=== PATIENT | female | born 1960 | race Caucasian/White ===

== ENCOUNTER 2023-09-24 20:34 | Emergency (ER) | payer MEDICARE, MEDICAID, SELFPAY ==
[2023-09-24 20:40] VITALS: BMI 23.8
[2023-09-24 20:42] VITALS: BP 99/65
[2023-09-24 20:52] LABS: % Basophils 1.1 % (0-2); % Eosinophils 2.9 % (0-6); % Immature Granulocytes 0.4 % (0-0.5); % Monocytes 11.5 % (1.7-9.3); % Neutrophils 50.1 % (42.2-75.2); Absolute Basophils 0.1 10^3/uL (0-0.2); Absolute Eosinophils 0.2 10^3/uL (0-0.7); Absolute Lymphocytes 2.6 10^3/uL (1.2-3.4); Absolute Monocytes 0.9 10^3/uL (0.1-0.6); Absolute Neutrophils 3.8 10^3/uL (1.4-6.5); Hematocrit 41.6 % (37.0-47.0); Hemoglobin 14.4 g/dL (12.0-16.0); Mean Corp Hgb Conc. 34.6 g/dL (33.0-37.0); Mean Corpuscular Hgb 32.2 pg (27.0-31.0); Mean Corpuscular Volume 93.1 fL (81.0-99.0); Mean Platelet Volume 9.3 fL (7.4-10.4); Nucleated Red Blood Cells % 0.4 %; Platelet Count 254 10^3/uL (130-400); Red Blood Cell Count 4.47 10^6/uL (4.20-5.40); Red Cell Dist. Width 15.7 % (11.5-14.5); White Blood Cell Count 7.5 10^3/uL (4.8-10.8)
[2023-09-24 21:10] LABS: ALT (SGPT) 91 U/L (0-35); AST (SGOT) 118 U/L (14-36); Albumin 3.6 g/dl (3.5-5.0); Alcohol 233 mg/dl; Alkaline Phosphatase 106 U/L (38-126); Blood Urea Nitrogen 25 mg/dl (7-17); Calcium 8.9 mg/dl (8.4-10.2); Carbon Dioxide 28 mmol/L (22-30); Chloride 102 mmol/L (98-107); Estimated Creatinine Clearance 54 ml/min; Glucose 117 mg/dl (70-99); Potassium 4.3 mmol/L (3.5-5.1); Sodium 135 mmol/L (135-145); Total Bilirubin 0.7 mg/dl (0.2-1.3); Total Protein 6.2 g/dl (6.3-8.2); eGFR 57.17
[2023-09-24] MEDS: DUONEB 3 ML INH ×2 (21:34→22:54)
[2023-09-24 22:05] VITALS: BP 97/71
[2023-09-24] MEDS: ATIVAN 0.5 MG IV ×2 (22:20→22:54)
[2023-09-24 23:00] VITALS: BP 115/74
--- NOTE | 2023-09-24 23:28 | ED.CVA ---
History of Present Illness
General
Chief Complaint: CVA/TIA Symptoms
Source: patient
Exam Limitations: none
Time Seen by Provider: 09/24/23 21:04
Nursing documentation reviewed up to this point in time: agreed with
Onset of Stroke Symptoms
Onset of symptoms known: Yes
Date of onset of symptoms: 09/24/23
Travel History
Have you had any contact with someone who has COVID-19?: No
Do you have any symptoms of coronavirus? Fever > 100 degrees, chills, cough, shortness of breath, sore throat, loss of taste or smell, muscle aches, or headache?: No
History of Present Illness
History of Present Illness:
63-year-old female with a past medical history of chronic pain, COPD/asthma, chronic respiratory failure on home oxygen 3 L, hyperlipidemia, alcohol abuse, prior stroke with residual left-sided weakness who presents to the emergency department for
evaluation of 'panic attack.' Patient says 'I think I am having a panic attack.' According to EMS report she was complaining of numbness in the left side of her face that started yesterday. Patient says that she has had intermittent tingling in
the left upper lip that she tells me that it started this morning and has been consistent throughout the day. She says that she was anxious because she had a recent stroke with left-sided symptoms and so she came to the emergency room to be
assessed. She tells me that now she think she is having a panic attack because she feels that she is short of breath and feels like her heart is racing consistent with prior panic attacks. She is requesting some medicine for anxiety. She was
apparently nauseous on the way to the hospital was given Zofran. She denies any nausea from me. No vomiting. No abdominal pain. She has not had any recent cough, fevers, chills or URI type symptoms. She denies any chest pain at present and has
not had chest pain over the past few days. She has not had any headache, neck pain. She has chronic weakness in the left side of both the arm and the leg which she denies any new weakness or numbness or worsening weakness on the left. She denies
any dizziness. She denies any falls or trauma. Denies any other complaints.
Past History
Past History
ED Past Medical History: Asthma, COPD, Hypercholesterolemia, [place], Psychiatric (Depression, suicide attempts in the past, self-inflicted lacerations, Bipolar) and Other (chronic pain syndrome, narcotic dependant, cervical djd with chronic pain,
RSD,PNA, Nasal 02 all the time, Alcohol abuse, Compression Fractures)
ED Past Surgical History: Gynecological (brast surgery-lumpectomy (benign)) and Orthopedic (cervical lami with fusionmm, vertebroplasty, Right humerous repair)
Social History
Tobacco: Former smoker
Alcohol: Daily (history of alcohol abuse)
Drug: Marijuana
Personal: Single (Has Boyfriend)
Living: with family (Common law [facility])
Employment: Not employed
Family History
Family History: Other ([place]'s disease)
Review of Systems
Review of Systems
All Other Systems: ROS reviewed and negative except as documented in HPI and ROS
Constitutional: Denies fever or chills
EENT: Denies sore throat or runny nose
Respiratory: Reports trouble breathing; Denies cough
Cardiac: Reports palpitations; Denies chest pain, diaphoresis or syncope
ABD/GI: Reports nausea; Denies abdominal pain, vomiting or diarrhea
: Denies flank pain
Musculoskeletal: Denies neck pain or back pain
Neurological: Reports other (Left upper lip paresthesia); Denies dizzy, headache, weakness or numbness
Phy Exam
Physical Exam
Physical Exam:
General: Awake, alert, oriented x3; appears anxious but no acute distress
Head: Normocephalic, atraumatic
Eyes: Conjunctiva normal, EOMI, pupils equal round reactive to light
Throat: Airway intact, handling secretions
Neck: Trachea midline, supple without meningismus
Lungs: Patient has faint wheezing scattered throughout all lung hodge; acceptable pulse ox on home oxygen and acceptable respiratory rate
Heart: Regular rate and rhythm, no murmurs, gallops, or rubs
Abd: Soft, non distended, nontender
Neuro: Cranial nerves intact 2 through 12�notably no objective deficit in facial sensation; no limb ataxia; she has 4/5 strength left upper and lower extremity which she says is normal for her; strength 5/5 right upper and lower extremity
Skin: no rash
Extremities: Warm and well-perfused with no signs of trauma; moving all extremities equally with no pain
Scores
Heart Failure Risk
Heart Failure Risk Score: Not Applicable
Heart Score for Chest Pain Patients
STEMI patient?: Not applicable
Withdrawal Assessment of Alcohol
Withdrawal Assessment Completed?: Not applicable
Course
Orders/Labs/Results
Orders:
Orders
09/24/23 20:46
CT Head W/o Iv Contrast Urgent
Comment:
Reason For Exam: facial numb
09/24/23 20:47
Alcohol Urgent
Complete Blood Count/With Diff Urgent
Comprehensive Metabolic Panel Urgent
09/24/23 21:20
Electrocardiogram (*1) Urgent
Reason for Study: Shortness of Breath
EKG- Treatment ONCE
Ipratropium/Albuterol Sulfate [Duoneb] 3 ml INH R NOW STA
CR Chest - 2 Views Urgent
Comment:
Reason For Exam: sob
09/24/23 22:15
Lorazepam [Ativan] 0.5 mg IV NOW STA
09/24/23 22:48
Ipratropium/Albuterol Sulfate [Duoneb] 3 ml INH R NOW STA
Lorazepam [Ativan] 0.5 mg IV NOW STA
Abnormal Lab Results
09/24/23
20:47
MCH 32.2 H pg
(27.0-31.0)
RDW 15.7 H %
(11.5-14.5)
Absolute Monos (auto) 0.9 H 10^3/uL
(0.1-0.6)
Monocytes % 11.5 H %
(1.7-9.3)
BUN 25 H mg/dl
(7-17)
Creatinine 1.1 H mg/dL
(0.6-1.0)
Glucose 117 H mg/dl
(70-99)
AST 118 H U/L
(14-36)
ALT 91 H U/L
(0-35)
Total Protein 6.2 L g/dl
(6.3-8.2)
09/24/23 20:47
09/24/23 20:47
Vital Signs
Initial and Last Documented VS:
Initial Vital Signs
Temp Pulse Resp BP Pulse Ox
36.6 C 72 16 99/65 94
09/24/23 20:42 09/24/23 20:42 09/24/23 20:42 09/24/23 20:42 09/24/23 20:42
Last Documented Vital Signs
Temp Pulse Resp BP Pulse Ox
36.6 C 66 19 99/74 91
09/24/23 20:42 09/25/23 00:00 09/25/23 00:00 09/25/23 00:00 09/25/23 00:20
MDM/Problems Addressed
Differential Diagnosis Includes:
Shortness of breath: COPD exacerbation, asthma exacerbation, pneumonia, anxiety/panic attack
Paresthesias left upper lip: Unlikely acute CVA, could be a nerve palsy, paresthesias from hyperventilation/anxiety
MDM/Problems Addressed:
63-year-old female presents primary complaining to me of 'panic attack' but was also having some left upper lip paresthesias throughout the day today. Vital signs here are all within normal limits. Physical exam as above. Will plan to place an IV
check labs including CBC and a CMP. Will check a CT head. Will check a chest x-ray. Will check an EKG. Will treat with a DuoNeb as she does have some wheezing. Will treat with some Ativan for anxiety. Monitor closely reassess at the above.
Initial labs reviewed: CBC unremarkable, CMP shows creatinine of 1.1 slightly increased from baseline will provide some fluids. AST and ALT slightly elevated�alcohol level was added on and she has an alcohol level of 233, likely LFT elevation
related to alcohol use. Patient says that her breathing feels 'much better' after DuoNeb and Ativan. Will provide repeat DuoNeb at her request as she felt significant subjective improvement. Discussed potentially treating with steroids but
patient says that 'I go nuts' with steroids and does not wish to be treated with them. Suspect there was likely some component of mild COPD exacerbation contributing to her shortness of breath although also likely some component of anxiety. Her CT
head was negative doubt central nervous system pathology as a cause for her left leg paresthesias. Will continue to monitor here.
Chest x-ray reviewed by me shows no acute disease. Patient feeling much better she has had stable vital signs throughout her stay. She is breathing comfortably now says her breathing is normal. Suspect mild COPD exacerbation and acute anxiety. I
offered admission under observation but patient does not wish to stay in the hospital at all. She is requesting to be discharged. Alcohol is still elevated she did receive some Ativan and however she is completely awake and alert and does not
appear to be clinically intoxicated. She placed a call to her to come pick her up and watch over her tonight. Will monitor until family arrives and discharge to their care.
Chronic conditions affecting care:
COPD, alcohol abuse, anxiety
Acute Exacerbation and/or Progression of Chronic Illness:
Acute COPD exacerbation managed with DuoNeb
Acute anxiety treated with Ativan
*Radiology
Radiology exam reviewed: preliminary read by ED provider and radiology read reviewed
*Pulse Oximetry
Patient hypoxic: no
*EKG
Interpreted by ED Provider?: Yes
Heart Rate: 66
Rate: normal
Rhythm: sinus
[place]: left axis deviation
Interval: normal interval
QRS Pattern: normal QRS
Ischemia: non-specific ST changes
*Critical Care Note
Total Time (30-74mins, 75-104mins- exclusive of procedures): Not Applicable
Data Reviewed
Review of Other/Old Records Reveals: Labs and Records
Source: patient and records
ED Attending Note
-
Portions of this chart may have been created with voice recognition software.� Occasional wrong word or��sound alike� substitutions may have occurred due to the inherent limitations of voice recognition software.
Discharge Plan
Departure
Patient Disposition: Home (Routine Discharge)
Date of Disposition: 09/25/23
Time of Disposition: 00:28
Patient with high blood pressure during this ER visit?: No
Discharge Problem:
COPD exacerbation, Anxiety, Lip paresthesia
Instructions: Anxiety, Adult (DC), Paresthesia (DC), COPD Exacerbation, Adult ED
Prescriptions:
No Action
albuterol sulfate 90 mcg/actuation HFA aerosol inhaler
2 puff INHALATION R Q4 PRN (Reason: sob/wheezing)
Breztri Aerosphere 160-9-4.8 mcg/actuation HFA aerosol inhaler
2 inh INHALATION R BID
quetiapine 200 mg tablet
200 mg PO HS
hydroxyzine HCl 50 mg tablet
50 mg PO BID
gabapentin 300 mg capsule
300 mg PO TID
atorvastatin 80 mg Tablet
80 mg PO QPM Qty: 3 2RF
fluoxetine 10 mg Capsule
10 mg PO DAILY Qty: 30 2RF
aspirin [Children's Aspirin] 81 mg Tablet,Chewable
81 mg PO DAILY Qty: 30 0RF
Referrals:
UNKNOWN - PT DOES,NOT KNOW [Family Provider] -
Activity Restrictions/Additional Instructions:
Thank you for visiting the Emergency Department at [facility].
1. Please schedule a follow up appointment as directed. Call first thing tomorrow morning to make an appointment.
2. If indicated, please take your medications as instructed and indicated on discharge paperwork.
3. If any of your symptoms do not improve, or persist, or become more severe within 6-12 hours, please return to the emergency department for further care.
4. Please return to the emergency department if you develop a headache, neck pain/stiffness, fever greater than 100.4F, chest pain, shortness of breath, persistent nausea, vomiting, slurred speech, difficulty walking, numbness/tingling, weakness,
signs of infection or any other symptoms that are worrisome to you.
Please call [phone] if you have any questions.
Interventions
Interventions:
ED- Pulmonary Assessment Last Done: 09/24/23 21:40
ED- Neurological Assessment Last Done: 09/24/23 21:40
ED- Cardiac Assessment Last Done: 09/24/23 21:40
[2023-09-25] VITALS: BP 99/74
[2023-09-25 01:30] VITALS: BP 105/74
== END 2023-09-25 01:31 | disposition home or self-care (01) ==
LOC: EMR 20:34
PROVIDERS: Clinical Nurse Specialist Family Health; EMERGENCY PHYSICIAN Emergency Medicine
DX: J44.1 Chronic obstructive pulmonary disease with (acute) exacerbation (principal); F41.9 Anxiety disorder, unspecified; R20.2 Paresthesia of skin; E78.00 Pure hypercholesterolemia, unspecified; G89.4 Chronic pain syndrome; Z87.891 Personal history of nicotine dependence; Z91.51 Personal history of suicidal behavior; Z99.81 Dependence on supplemental oxygen
CPT/HCPCS: 99284; 96374; 96375; 70450; 71046; 80053; 82077; 85025; 93005

== ENCOUNTER 2023-10-16 04:30 | Emergency (ER) | payer MEDICARE, MEDICAID, SELFPAY ==
[2023-10-16 04:33] VITALS: BP 118/95
[2023-10-16 04:39] VITALS: BMI 23.2
--- NOTE | 2023-10-16 04:47 | ED.GENMED ---
History of Present Illness
General
Chief Complaint: Fall
Time Seen by Provider: 10/16/23 04:35
Travel History
Have you had any contact with someone who has COVID-19?: No
Do you have any symptoms of coronavirus? Fever > 100 degrees, chills, cough, shortness of breath, sore throat, loss of taste or smell, muscle aches, or headache?: No
History of Present Illness
History of Present Illness:
HPI: The patient came in from home by ambulance after a fall. The patient states she has fallen a few days ago as well. We were told by EMS that she admitted to them that she had 2 shots before bed. She denies any other traumatic injury. She has
chronic neck pain but no new neck pain. She frequently gets dizzy and this is not new.
EXAM:
GENERAL: Well appearing in no distress, she does not appear to be intoxicated, she is chronically on nasal cannula oxygen
CERVICAL SPINE: No midline c-spine tenderness with excellent AROM
HEAD: There is a large hematoma over the left supraorbital region with no infraorbital tenderness
CHEST: No chest wall tenderness, normal heart sounds
LUNGS: Equally decreased breath sounds, no respiratory distress
ABDOMEN: No abdominal tenderness, no peritoneal signs
EXTREMITIES: Normal active range of motion, no tenderness
NEURO: Excellent strength all extremities, appropriate mental status, normal speech/language
ED COURSE:
4:45 AM: I initially evaluated patient
NUMBER AND COMPLEXITY OF PROBLEMS ADDRESSED AT THE ENCOUNTER
� Chronic conditions affecting care: COPD, alcohol use disorder, bipolar, chronic pain/RSD, hyperlipidemia, [place], CVA
� Acute Exacerbation and/or Progression of Chronic Illness: This is an acute problem but she has had problems with dizziness in the past
� Differential Diagnosis includes: Intracranial hemorrhage, nonspecific dizziness, positional vertigo, dehydration, alcohol use
AMOUNT AND/OR COMPLEXITY OF DATA TO BE REVIEWED AND ANALYZED
� I performed an independent evaluation of and my interpretation is:
EKG:
CT: CT brain shows no acute abnormality
X-rays:
Laboratory Studies: Blood sugar is normal at 117
Other:
� Review of other/old records: I reviewed records, the patient has several visits here related to alcohol use however the patient denies any significant amount of alcohol in the recent past but states that she did have a couple
of shots several hours ago.
� Clinical information was obtained by an independent historian: Spoke to EMS
� Prescriptions/Medications Considered but not given:
� Further testing considered but not performed:
RISK OF COMPLICATIONS AND/OR MORBIDITY OR MORTALITY OF PATIENT MANAGEMENT
� Social determinants of health affecting care: Lives at home
� Discussion with other providers:
� Escalation of care including admission/observation vs risk of discharge considered: Given patient's age with head trauma on aspirin, CT imaging of the brain was obtained which was unremarkable with exception of forehead
hematoma. On reassessment at 5:56 AM, the patient was awake talking and requesting water. She did not appear to be in any distress
Past History
Past History
ED Past Medical History: Asthma, COPD, Hypercholesterolemia, [place], Psychiatric (Depression, suicide attempts in the past, self-inflicted lacerations, Bipolar) and Other (chronic pain syndrome, narcotic dependant, cervical djd with chronic pain,
RSD,PNA, Nasal 02 all the time, Alcohol abuse, Compression Fractures)
ED Past Surgical History: Gynecological (brast surgery-lumpectomy (benign)) and Orthopedic (cervical lami with fusionmm, vertebroplasty, Right humerous repair)
Social History
Tobacco: Former smoker
Alcohol: Daily (history of alcohol abuse)
Drug: Marijuana
Personal: Single (Has Boyfriend)
Living: with family (Common law [facility])
Employment: Not employed
Family History
Family History: Other ([place]'s disease)
Phy Exam
Physical Exam
Physical Exam:
See HPI
Course
Orders/Labs/Results
Orders:
Orders
10/16/23 04:46
CT Head W/o Iv Contrast Urgent
Comment:
Reason For Exam: trauma on aspirin forehead hematoma
10/16/23 05:24
Bedside Glucose- Treatment ONCE
Abnormal Lab Results
10/16/23
05:24
POC Glucose 117 H mg/dl
(70-99)
Vital Signs
Initial and Last Documented VS:
Initial Vital Signs
Temp Pulse Resp BP Pulse Ox
97.9 F 86 20 118/95 96
10/16/23 04:33 10/16/23 04:33 10/16/23 04:33 10/16/23 04:33 10/16/23 04:33
Last Documented Vital Signs
Temp Pulse Resp BP Pulse Ox
97.9 F 86 20 118/95 96
10/16/23 04:33 10/16/23 04:33 10/16/23 04:33 10/16/23 04:33 10/16/23 04:33
*Critical Care Note
Total Time (30-74mins, 75-104mins- exclusive of procedures): Not Applicable
ED Attending Note
-
Portions of this chart may have been created with voice recognition software.� Occasional wrong word or��sound alike� substitutions may have occurred due to the inherent limitations of voice recognition software.
Discharge Plan
Departure
Patient Disposition: Home (Routine Discharge)
Date of Disposition: 10/16/23
Time of Disposition: 05:32
Patient with high blood pressure during this ER visit?: Yes
Discharge Problem:
Fall, Hematoma of face
Instructions: Preventing falls in adults
Prescriptions:
No Action
albuterol sulfate 90 mcg/actuation HFA aerosol inhaler
2 puff INHALATION R Q4 PRN (Reason: sob/wheezing)
Breztri Aerosphere 160-9-4.8 mcg/actuation HFA aerosol inhaler
2 inh INHALATION R BID
quetiapine 200 mg tablet
200 mg PO HS
hydroxyzine HCl 50 mg tablet
50 mg PO BID
gabapentin 300 mg capsule
300 mg PO TID
atorvastatin 80 mg Tablet
80 mg PO QPM Qty: 3 2RF
fluoxetine 10 mg Capsule
10 mg PO DAILY Qty: 30 2RF
aspirin [Children's Aspirin] 81 mg Tablet,Chewable
81 mg PO DAILY Qty: 30 0RF
Referrals:
Amy Diaz NP [Family Provider] -
Activity Restrictions/Additional Instructions:
Your blood sugar is normal. A CAT scan was obtained that shows no sign of bleeding inside the head. Your blood sugar was normal. Return here if worse. Use ice to the affected area to help decrease swelling.
Interventions
Interventions:
*Risk Screen - Suicide Last Done: 10/16/23 04:33
*General Assessment Last Done: 10/16/23 04:33
*Neglect/Abuse Screening Last Done: 10/16/23 04:33
ED- Fall Risk Assessment Last Done: 10/16/23 04:33
*ED COVID-19 Vaccine History Last Done: 10/16/23 04:33
ED-Musculoskeletal Assessment Last Done: 10/16/23 04:54
ED- Neurological Assessment Last Done: 10/16/23 04:54
ED-Skin Assessment Last Done: 10/16/23 04:54
[2023-10-16 05:26] LABS: Glucose - Point of Care 117 mg/dl (70-99)
== END 2023-10-16 06:20 | disposition home or self-care (01) ==
LOC: EMR 04:30
PROVIDERS: EMERGENCY PHYSICIAN Emergency Medicine; FAMILY PHYSICIAN Nurse Practitioner Adult Health
DX: S00.83XA Contusion of other part of head, initial encounter (principal); W19.XXXA Unspecified fall, initial encounter; R03.0 Elevated blood-pressure reading, without diagnosis of hypertension; G89.4 Chronic pain syndrome; J44.89 Other specified chronic obstructive pulmonary disease; F10.10 Alcohol abuse, uncomplicated; F31.9 Bipolar disorder, unspecified; E78.00 Pure hypercholesterolemia, unspecified; Z87.891 Personal history of nicotine dependence
CPT/HCPCS: 99284; 70450; 82962

== ENCOUNTER 2023-11-07 06:28 | Inpatient (IN) | payer MEDICARE, MEDICAID, SELFPAY ==
[2023-11-06] VITALS (7 sets, daily range): BP systolic 90–127; BP diastolic 64–79; BMI 23.8
[2023-11-06 22:35] LABS: % Basophils 1.3 % (0-2); % Eosinophils 3.3 % (0-6); % Immature Granulocytes 0.6 % (0-0.5); % Lymphocytes 36.9 % (20.5-51.1); % Monocytes 7.8 % (1.7-9.3); % Neutrophils 50.1 % (42.2-75.2); Absolute Basophils 0.1 10^3/uL (0-0.2); Absolute Eosinophils 0.2 10^3/uL (0-0.7); Absolute Lymphocytes 2.6 10^3/uL (1.2-3.4); Absolute Monocytes 0.6 10^3/uL (0.1-0.6); Absolute Neutrophils 3.5 10^3/uL (1.4-6.5); Hematocrit 40.4 % (37.0-47.0); Hemoglobin 13.1 g/dL (12.0-16.0); Mean Corp Hgb Conc. 32.4 g/dL (33.0-37.0); Mean Corpuscular Hgb 31.3 pg (27.0-31.0); Mean Corpuscular Volume 96.7 fL (81.0-99.0); Mean Platelet Volume 8.9 fL (7.4-10.4); Nucleated Red Blood Cells % 0.3 %; Platelet Count 284 10^3/uL (130-400); Red Blood Cell Count 4.18 10^6/uL (4.20-5.40)
--- NOTE | 2023-11-06 23:08 | ED.GENMED ---
History of Present Illness
General
Chief Complaint: Fainting/Passed Out
Source: patient
Exam Limitations: none
Time Seen by Provider: 11/06/23 22:08
Nursing documentation reviewed up to this point in time: agreed with
Travel History
Have you had any contact with someone who has COVID-19?: No
Do you have any symptoms of coronavirus? Fever > 100 degrees, chills, cough, shortness of breath, sore throat, loss of taste or smell, muscle aches, or headache?: No
History of Present Illness
History of Present Illness:
63-year-old female with past medical history of COPD/asthma, chronic respiratory failure on 2 to 3 L of home oxygen, chronic back pain, chronic neck pain, anxiety, alcohol abuse who presents to the emergency department for evaluation after syncopal
event and head trauma. Patient reports that this evening around 8 PM she was sitting on the couch. She says she got up to go to the bathroom. She says she took about 2 or 3 steps and suddenly passed out. She says she fell down and hit the left
side of her head on a coffee table. She says that she was able to get up on her own but began to feel dizzy again and went down again to her knees. Her partner called EMS to bring her to the hospital. She denies any associated chest pain. She
denies any shortness of breath beyond her baseline. She denies any headache. Denies any neck pain. Denies any abdominal or back pain. She denies any other complaints today. She is not on any blood thinners aside from a baby aspirin. She does
report that she has had a few episodes of syncope over the weeks; she follows with cardiology through [facility] and says that she had an echocardiogram and wore a rubber press operator and finished this up 2 days ago as an outpatient; she says that
her doctor told her that she was having blood pressure drop with positional changes.
Past History
Past History
ED Past Medical History: Asthma, COPD, Hypercholesterolemia, [place], Psychiatric (Depression, suicide attempts in the past, self-inflicted lacerations, Bipolar) and Other (chronic pain syndrome, narcotic dependant, cervical djd with chronic pain,
RSD,PNA, Nasal 02 all the time, Alcohol abuse, Compression Fractures)
ED Past Surgical History: Gynecological (brast surgery-lumpectomy (benign)) and Orthopedic (cervical lami with fusionmm, vertebroplasty, Right humerous repair)
Social History
Tobacco: Former smoker
Alcohol: Daily (history of alcohol abuse)
Drug: Marijuana
Personal: Single (Has Boyfriend)
Living: with family ([facility])
Employment: Not employed
Family History
Family History: Other (Tougaloo's disease)
Review of Systems
Review of Systems
All Other Systems: ROS reviewed and negative except as documented in HPI and ROS
Constitutional: Denies fever or chills
EENT: Denies sore throat or runny nose
Respiratory: Denies cough or trouble breathing
Cardiac: Reports syncope; Denies chest pain, diaphoresis or palpitations
ABD/GI: Denies abdominal pain, nausea, vomiting or diarrhea
: Denies flank pain
Musculoskeletal: Denies neck pain or back pain
Neurological: Reports dizzy; Denies headache, weakness or numbness
Phy Exam
Physical Exam
Physical Exam:
General: Awake, alert, oriented x3; no acute distress
Head: Normocephalic, some ecchymosis around the left eye which appears old; no signs of acute head trauma
Eyes: Conjunctiva normal, EOMI, pupils equal round reactive to light bilaterally
Throat: Airway intact, handling secretions
Neck: Trachea midline, no cervical spine tenderness
Back: No signs of trauma to the back or flank
Lungs: Clear to auscultation bilaterally, no wheezing, rales, rhonchi
Heart: Tachycardia with regular rhythm, no murmurs, gallops, or rubs
Abd: Soft, non distended, nontender with no masses
Neuro: Cranial nerves grossly intact, speech fluid
Skin: no rash
Extremities: Atraumatic, no edema in extremities, equal pulses in all extremities
Scores
Heart Failure Risk
Heart Failure Risk Score: Not Applicable
Heart Score for Chest Pain Patients
STEMI patient?: Not applicable
Withdrawal Assessment of Alcohol
Withdrawal Assessment Completed?: Not applicable
Course
Orders/Labs/Results
Orders:
Orders
11/06/23 22:10
Electrocardiogram (*1) Urgent
Reason for Study: Other
Other Reason for Exam: Respiratory Distress
Cardiac Monitoring- Treatment ONCE
EKG- Treatment ONCE
IV Insert/Care/Rem.- Treatment PRN
O2 Therapy [RESP] Urgent
Titrate/Wean O2 to maintain O2 sat greater than (%): 93
Special Instructions: TO MAINTAIN CONTINUOUS O2 SATS >/= 93%
Pulse Ox/cont/shift [RESP] Urgent
Quantity: 1
Special Instructions: continuous pulse ox
11/06/23 22:29
Complete Blood Count/With Diff Urgent
11/06/23 22:51
CT Cervical Spine W/o Iv Contr Urgent
Comment:
Reason For Exam: fall with head trauma
CT Head W/o Iv Contrast Urgent
Comment:
Reason For Exam: fall with head trauma
11/06/23 22:52
Orthostatic VS- Treatment ONCE
11/06/23 23:24
Alcohol Urgent
Comprehensive Metabolic Panel Urgent
Lipase Urgent
Comment: ADDED
NT-proBNP Urgent
Troponin I Urgent
11/07/23 00:21
0.9% Sodium Chloride 1000 ml [Nss] 1,000 ml IV BOLUS
11/07/23 01:15
CT Chest Pe Study Urgent
Comment:
Reason For Exam: right chest pain, syncope
Abnormal Lab Results
11/06/23 11/06/23
22:29 23:24
RBC 4.18 L 10^6/uL
(4.20-5.40)
MCH 31.3 H pg
(27.0-31.0)
MCHC 32.4 L g/dL
(33.0-37.0)
Immature Gran % 0.6 H %
(0-0.5)
Glucose 102 H mg/dl
(70-99)
AST 40 H U/L
(14-36)
Total Protein 6.1 L g/dl
(6.3-8.2)
11/06/23 22:29
11/06/23 23:24
Vital Signs
Initial and Last Documented VS:
Initial Vital Signs
Temp Pulse Resp BP
36.8 C 99 22 120/64
11/06/23 22:12 11/06/23 22:12 11/06/23 22:12 11/06/23 22:12
Last Documented Vital Signs
Temp Pulse Resp BP Pulse Ox
36.8 C 83 20 105/55 94
11/06/23 22:12 11/07/23 03:15 11/07/23 03:15 11/07/23 01:00 11/07/23 00:15
MDM/Problems Addressed
Differential Diagnosis Includes:
Orthostatic hypotension, vasovagal syncope, symptomatic anemia, dehydration, cardiac dysrhythmia, valvular disease; very low suspicion for emergent pathology such as acute pulmonary embolism, subarachnoid hemorrhage, acute aortic emergency based on
full clinical picture and in my judgment no further workup for these diagnoses is indicated
MDM/Problems Addressed:
63-year-old female presents for evaluation after syncopal event that occurred after standing up�has had similar positional syncope over the past few weeks and had outpatient workup with cardiology team, she says she was told that her symptoms were
due to low blood pressure when she stands (orthostatic/postural syncope). She is mildly tachycardic here but otherwise vitals are normal. Physical exam as above. EKG shows sinus rhythm with no AV block, no Brugada, no delta wave, normal QTc.
Plan to place an IV send labs including CBC and CMP. Check troponin. Will check CT head and cervical spine given fall with head trauma. Will check orthostatic vitals. Will provide some fluids. Monitor on telemetry and reassess after the above.
Patient's orthostatic vital signs were quite positive�will provide fluids and reassess.
CT head and cervical spine negative for any acute pathology. Initial labs reviewed and CBC and CMP unremarkable. Her troponin is undetectable, BNP normal. She remains mildly tachycardic despite some fluids. She is now starting complaints of
right-sided chest pain she thinks may related close she has no significant tenderness on exam and no signs of trauma to the chest wall. Will send for CTA chest to evaluate for fracture as well as to rule out PE given her syncope, chest pain,
tachycardia. Will continue to monitor reassess after the above.
CTA shows no new rib fractures; there is a questionable new thoracic fracture but she has no new pain or tenderness in the back. No pulmonary embolism. Clinical reassessment despite IV fluids patient is significantly orthostatic even from laying
to sitting position and very symptomatic. She says she has had 6 syncopal events in the past few weeks including to this evening. Discussed with hospitalist for admission.
*Radiology
Radiology exam reviewed: radiology read reviewed
*Pulse Oximetry
Patient hypoxic: no
*EKG
Interpreted by ED Provider?: Yes
Heart Rate: 95
Rate: normal
Rhythm: sinus
[place]: left axis deviation
Interval: normal interval and normal QT interval
QRS Pattern: normal QRS
Ischemia: no ischemia
*Critical Care Note
Total Time (30-74mins, 75-104mins- exclusive of procedures): Not Applicable
Data Reviewed
Review of Other/Old Records Reveals: Labs and Records
Source: patient and records
Patient Management
Discussion with other providers: Hospitalist (Discussed with hospitalist.)
Escalation/DeEscalation of care consider admission/obs:
Admission indicated
ED Attending Note
-
Portions of this chart may have been created with voice recognition software.� Occasional wrong word or��sound alike� substitutions may have occurred due to the inherent limitations of voice recognition software.
Discharge Plan
Departure
Patient Disposition: Admit
Date of Disposition: 11/07/23
Time of Disposition: 04:11
Admit to doctor: Rosa
Presentation/result/management discussed w/ accepting MD/DO: Hospitalist
Discharge Problem:
Syncope
Prescriptions:
No Action
albuterol sulfate 90 mcg/actuation HFA aerosol inhaler
2 puff INHALATION R Q4 PRN (Reason: sob/wheezing)
Breztri Aerosphere 160-9-4.8 mcg/actuation HFA aerosol inhaler
2 inh INHALATION R BID
quetiapine 200 mg tablet
200 mg PO HS
hydroxyzine HCl 50 mg tablet
50 mg PO BID
gabapentin 300 mg capsule
300 mg PO TID
atorvastatin 80 mg Tablet
80 mg PO QPM Qty: 3 2RF
fluoxetine 10 mg Capsule
10 mg PO DAILY Qty: 30 2RF
aspirin [Children's Aspirin] 81 mg Tablet,Chewable
81 mg PO DAILY Qty: 30 0RF
Referrals:
Amy Banegas MD [Family Provider] -
Interventions
Interventions:
*Risk Screen - Suicide Last Done: 11/06/23 22:12
*General Assessment Last Done: 11/06/23 22:12
*Neglect/Abuse Screening Last Done: 11/06/23 22:12
ED- Fall Risk Assessment Last Done: 11/06/23 22:12
*ED COVID-19 Vaccine History Last Done: 11/06/23 22:12
ED- Cardiac Assessment Last Done: 11/06/23 23:09
ED- Neurological Assessment Last Done: 11/06/23 23:09
Discharge Date and Time
Print Language: LAO
[2023-11-06 23:58] LABS: ALT (SGPT) 32 U/L (0-35); AST (SGOT) 40 U/L (14-36); Albumin 3.6 g/dl (3.5-5.0); Alcohol 166 mg/dl; Alkaline Phosphatase 114 U/L (38-126); Blood Urea Nitrogen 9 mg/dl (7-17); Calcium 9.9 mg/dl (8.4-10.2); Carbon Dioxide 24 mmol/L (22-30); Chloride 107 mmol/L (98-107); Estimated Creatinine Clearance 85 ml/min; Glucose 102 mg/dl (70-99); Lipase 174 U/L (23-300); Potassium 3.8 mmol/L (3.5-5.1); Sodium 137 mmol/L (135-145); Total Bilirubin 0.5 mg/dl (0.2-1.3); Total Protein 6.1 g/dl (6.3-8.2); eGFR > 60.00
[2023-11-07] VITALS (21 sets, daily range): BP systolic 77–146; BP diastolic 55–89; PULSE 84–116
[2023-11-07 00:11] LABS: NT-proBNP 117 pg/ml; Troponin I < 0.012 ng/ml
[2023-11-07] MEDS: NSS 1000 IV ×2 (00:21→13:37)
--- NOTE | 2023-11-07 06:08 | HPS.HSE ---
Family Physician
-
Family Physician: Amy Banegas MD
Chief Complaint
-
recurrent syncope
History of Present Illness
HPI mainly from ER physician
63F HX COPD, [place] , Asthma , CVA , chronic respiratory failure on 2 to 3 L of home oxygen, chronic back pain, chronic neck pain, anxiety, alcohol abuse seeen at ER for evaluation after syncopal event and head trauma.
After sitting on the couch, got up to go to the bathroom about 2 or 3 steps and suddenly passed out
Report hit the left side of her head on a coffee table.
After he get up , began to feel dizzy again and went down again to her knees.
[facility] to bring her to the hospital.
Not on any blood thinners aside from a baby aspirin.
HX syncope over the weeks;
Patient follows with [facility] cardiology through [facility] and says that she had an echocardiogram and wore a management trainee and finished this up 2 days ago as an outpatient;
Reports her doctor told her that she was having blood pressure drop with positional changes.
Medical History
Past Medical History
Past Medical History: Reports Other (Asthma, COPD, Hypercholesterolemia, [place], Psychiatric (Depression, suicide attempts in the past, self-inflicted lacerations, Bipolar) and Other (chronic pain syndrome, narcotic dependant, cervical djd with chronic
pain, RSD,PNA, Nasal 02 all the time, Alcohol abuse, Compression Fractures))
Additional Past Medical History:
Asthma, COPD, Hypercholesterolemia, [place], Psychiatric (Depression, suicide attempts in the past, self-inflicted lacerations, Bipolar) and Other (chronic pain syndrome, narcotic dependant, cervical djd with chronic pain, RSD,PNA, Nasal 02 all the
time, Alcohol abuse, Compression Fractures)
Past Surgical History: Reports Other
Additional Past Surgical History:
Gynecological (brast surgery-lumpectomy (benign)) and Orthopedic (cervical lami with fusionmm, vertebroplasty, Right humerous repair)
Social History
Tobacco: Former Smoker
Alcohol: Chronic Alcoholic
Drug: Marijuana
Personal: Other (sergio law marragwillis)
Employment: Not Employed
Family History
Family History: Not pertinent
Allergies / Home Medications
Allergies reflects when Allergies were last updated in [employer].
Home Medications with original date entered in [employer]
Allergy/Medication List:
Allergies
Allergy/AdvReac Type Severity Reaction Status Date / Time
adhesive [Adhesive] Allergy paper tape Verified 11/06/23 22:11
itches
cephalexin monohydrate Allergy Stimulates Verified 11/06/23 22:11
[From Keflex] menses
Corticosteroids Allergy Psychosis Verified 11/06/23 22:11
(Glucocorticoids)
Home Medications
albuterol sulfate 90 mcg/actuation aerosol inhaler 2 puff inhalation R Q4 PRN sob/wheezing 09/15/22
budesonide 160 mcg-glycopyr 9 mcg-formot 4.8 mcg/actuation HFA inhaler (Breztri Aerosphere) 2 inh inhalation R BID Lung/Breathing Issues 09/15/22
gabapentin 300 mg capsule 300 mg PO TID Pain 07/21/23
hydroxyzine HCl 50 mg tablet 50 mg PO BID Mental Health/Anxiety 07/21/23
quetiapine 200 mg tablet 200 mg PO HS Mental Health/Anxiety 07/21/23
aspirin 81 mg chewable tablet (Children's Aspirin) 81 mg PO DAILY #30 tabs 07/23/23
atorvastatin 80 mg tablet 80 mg PO QPM #3 tabs 07/23/23
fluoxetine 10 mg capsule 10 mg PO DAILY #30 caps 07/23/23
Review of Systems
-
Constitutional: Reports No Symptoms
EENT: Reports No Symptoms
Respiratory: Reports No Symptoms
Cardiac: Reports No Symptoms
Abdomen/GI: Reports No Symptoms
: Reports No Symptoms
Musculoskeletal: Reports No Symptoms
Skin: Reports No Symptoms
Neurological: Reports See HPI
Endocrine: Reports No Symptoms
Hematologic/Lymphatic: Reports No Symptoms
Psych: Reports No Symptoms
Physical Exam
Vital Signs
Vital Signs
Temp Pulse Resp BP Pulse Ox
98.3 F 84 14 125/72 97
11/06/23 22:12 11/07/23 05:00 11/07/23 05:00 11/07/23 05:00 11/07/23 05:00
Physical Exam
General: Well Developed, Well Nourished and No Apparent Distress
HEENT: NormoCephalic and Moist mucous membranes
Respiratory: Clear; No Wheezes, Rales or Rhonchi
Cardiac: S1/S2 and Regular Rhythm; No Murmur
Breast: Deferred by me
GI: Soft, Non Tender, Non Distended and Normal Bowel Sounds
Rectal: Deferred by Provider
Genito-urinary: Deferred by me
Musculoskeletal: No Edema
Skin: Warm and Dry
Neuro: AO x 3 and Nonfocal/grossly intact
Psych: Calm
Laboratory Results
-
11/06/23 22:29
11/06/23 23:24
Laboratory Results
Total Bilirubin 0.5 mg/dl (0.2-1.3) 11/06/23 23:24
AST 40 U/L (14-36) H 11/06/23 23:24
ALT 32 U/L (0-35) 11/06/23 23:24
Alkaline Phosphatase 114 U/L (38-126) 11/06/23 23:24
Troponin I < 0.012 ng/ml 11/06/23 23:24
Lipase 174 U/L (23-300) 11/06/23 23:24
Data Reviewed
-
CT Scan: Report Reviewed by me
Medical Tests (Nuc Med, Echo, EKG etc): Report Reviewed by me
Lab Data: Labs Reviewed by me
Old Records: Reviewed
Impression/Plan
-
Reviewed VS: unremarkable
Data
nl CBC
nl CMP
NEG TPNI
nl BNP
EKG
NORMAL SINUS RHYTHM
LEFT AXIS DEVIATION
POSSIBLE ANTERIOR INFARCT , AGE UNDETERMINED
ABNORMAL ECG
WHEN COMPARED WITH ECG OF 24-SEP-2023 21:56,
NON-SPECIFIC CHANGE IN ST SEGMENT IN LATERAL LEADS
NONSPECIFIC T WAVE ABNORMALITY HAS REPLACED INVERTED T WAVES IN INFERIOR LEADS
NEG HCT and Cx spine for acute patho
CTA for PE:
No PE: No new rib fractures
questionable new thoracic fracture but she has no new pain or tenderness in the back. N
Last hospitalist admission: 07/21/23 -
Acute cerebrovascular accident.
Aborted progression of the acute cerebrovascular accident.
HX lcohol use.
Chronic anxiety.
Chronic obstructive pulmonary diseas
07/22/23 TTE
Very technically difficult suboptimal 2D echo study
Left ventricle is small in size. Hyperdynamic left ventricular systolic
function. Left ventricular ejection fraction is 60-65% .
No significant valvular disease within the limitations of this study.
Compared to the previous echo February 2015, there was at least moderate TR at
that time noted. This study was very technically limited.
ASSESSMENT & PLAN
Recurrent syncope suspect due to postural hypotension
Significantly orthostatic even from laying to sitting position and very symptomatic.
CTA NEG for PE
NEG HCT
Noted extensive OP vard w/u
- f/u Ortho VSS
- IVF
- fall precaution
- Neuro consult
ETOH use disorder
- MSA S protocol for ETOH WD in case
HX COPD.
DVT Px: LMWH
Code: Full code
IP TLM
--- NOTE | 2023-11-07 08:04 | W.PN.UPDATE ---
Update Note
Progress Note Update
Patient admitted early this morning for syncope secondary to postural hypotension.
Start midodrine 5 mg 3 times daily.
Check orthostatic vital signs 1 hour after she gets her midodrine.
Cancel neurology consult.
--- NOTE | 2023-11-07 12:30 | PTCARENOTE ---
Pt received from the ED alert and oriented. Denies any lightheadedness or dizziness. 02 on a 3LNC, sat 97%. Denies any pain or sob. Pt instructed to call nurse to use the BR.
[2023-11-07] MEDS: ProAmatine 5 MG PO ×2 (14:00→17:34)
[2023-11-07] MEDS: FOLVITE 1 MG PO (14:01)
[2023-11-07] MEDS: THIAMINE INJECTION 200 MG IV ×2 (15:24→22:30)
[2023-11-07] MEDS: LOVENOX 40 MG SC (17:28)
[2023-11-07] MEDS: ProAIR HFA INHALER 2 PUFF INH (18:32)
[2023-11-07 19:25] LABS: Amphetamines Negative (Negative); Barbiturates Negative (Negative); Benzodiazepines Negative (Negative); Buprenorphine Negative (Negative); Cocaine Negative (Negative); Marijuana Negative (Negative); Methadone Negative (Negative); Methamphetamines Negative (Negative); Opiates Negative (Negative); Phencyclidine Negative (Negative); Tricyclic Antidepressants Positive (Negative)
[2023-11-07] MEDS: LIPITOR 80 MG PO (20:03)
[2023-11-07] MEDS: ATARAX PO (20:38)
[2023-11-07] MEDS: SYMBICORT 160/4.5 MCG INHALER 2 PUFF INH (20:58)
[2023-11-07] MEDS: NSS IV (22:12)
[2023-11-07] MEDS: NEURONTIN 400 MG PO (22:29)
[2023-11-07] MEDS: SEROQUEL 200 MG PO (22:30)
[2023-11-08] VITALS (15 sets, daily range): BP systolic 106–132; BP diastolic 63–85; PULSE 91–113; O2SAT 95–97; BMI 23.7
--- NOTE | 2023-11-08 01:13 | PTCARENOTE ---
assumed care of patient at the change of shift. AAOx3. MSAS 3. hand tremors-patient states thats her baseline. SR-ST on [id number]. increased rates when oob. bp stable. denies any lightheadedness/dizziness. educated patient to call for assistance
to BR. calls appropriately. standby assist-no episodes of lightheadedness/dizziness.
--- NOTE | 2023-11-08 01:19 | PTCARENOTE ---
patient has had multiple IV sites blown and is a hard stick. discussed IVF with Angie boggs to d/c. patient drinking fluids. no episodes of lightheadedness/dizziness.
--- NOTE | 2023-11-08 04:01 | PTCARENOTE ---
when patient resting in bed, HR 70s-80s. when oob, increased rates 110-120s. assisted patient to BR. sat on side of bed prior to standing. denied any lightheadedness/dizziness. steady on her feet.
[2023-11-08] MEDS: SPIRIVA RESPIMAT 2.5 MCG 2 PUFF INH (07:25)
[2023-11-08] MEDS: SYMBICORT 160/4.5 MCG INHALER 2 PUFF INH ×2 (07:25→18:29)
[2023-11-08] MEDS: ProAIR HFA INHALER 2 PUFF INH ×2 (07:25→18:30)
[2023-11-08] MEDS: PROZAC 10 MG PO (08:09)
[2023-11-08] MEDS: THIAMINE INJECTION IV (08:09)
[2023-11-08] MEDS: ATARAX 50 MG PO (08:09)
[2023-11-08] MEDS: LOW STRENGTH ASPIRIN 81 MG PO (08:09)
[2023-11-08] MEDS: ProAmatine 5 MG PO ×3 (08:09→17:45)
[2023-11-08] MEDS: FOLVITE 1 MG PO (08:09)
[2023-11-08] MEDS: NEURONTIN 400 MG PO ×3 (08:10→21:22)
[2023-11-08] MEDS: ATIVAN 1 MG PO ×3 (08:17→21:22)
--- NOTE | 2023-11-08 08:18 | PTCARENOTE ---
patient c/o 'being shaky', requested Ativan po, given as ordered.
--- NOTE | 2023-11-08 09:04 | W.PN.HOSP.TC ---
Today's Communication/Plan
-
see bold
Assessment / Plan
Assessment / Plan
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
lying to sitting, or sitting to standing.
#Recurrent syncope
#Postural orthostasis/hypotension
Check daily orthostatic vital signs (so far neg), continue midodrine 5 mg 3 times daily (home dose)
Head and C-spine CT negative for acute fracture or dislocation, negative for bleed
No more syncope since admission
Monitor today, possible discharge tomorrow if no more syncope or orthostasis
PT rec HH
#Chronic alcohol use with dependency
Continue thiamine, folic acid, M SAS protocol
#Chronic
#Toxic respiratory failure on 2 L of oxygen
From chemical lung injury, denies history of COPD
Chest CT: Severe emphysematous lung changes. Linear parenchymal scarring in the posterior right upper lobe. No evidence of pneumonia.
#History of CVA
Continue statin, continue aspirin
#History of asthma
Continue home inhalers
#Anxiety/depression
Continue fluoxetine, hydroxyzine, Seroquel
DVT prophylaxis�subcu Lovenox
Full code
Total time spent to see the patient on the floor, examine the patient, review data and lab results, discuss treatment plan with patient, nursing staff around 50 minutes.
Physical Exam
General: No acute distress
HEENT: Normocephalic, left-sided periorbital ecchymosis noted, EOMI, MMM
Respiratory: Clear to Auscultation bilaterally
Cardiac: Normal S1/S2, Regular Rate and Rhythm
GI: Soft, Nontender, Nondistended, Normal Bowel Sounds
Extremities: No Clubbing, Cyanosis, or Edema
Neuro: Nonfocal/Grossly Intact
Psych: Calm, Cooperative
Anticipated Discharge: 24 - 48 hours
Subjective/Interval History
-
Date of Service: November 08, 2023
No more syncope since admission. No lightheadedness, no dizziness. No fever, no vomiting.
Objective Data
-
Vital Signs:
Vital Signs
Temp Pulse Resp BP Pulse Ox
98.0 F 104 18 117/83 95
11/08/23 07:52 11/08/23 08:09 11/08/23 07:52 11/08/23 08:09 11/08/23 07:52
I&O
11/07/23 11/08/23 11/09/23
06:59 06:59 06:59
Intake Total 650 / 650
Balance 650 / 650
--- NOTE | 2023-11-08 11:30 | CM ---
Chart reviewed. Patient is independent of ADLS, lives with her jail boyfriend in an apartment, basement level, total of 11 [address], ambulates with a SPC and rolling walker. Patient does receive a visiting nurse visit through Medicare every
month. I offered patient substance abuse counseling and she declined. Plan is for the patient to return home. CM to follow
--- NOTE | 2023-11-08 14:26 | PTCARENOTE ---
patient called out c/o her tremors, Ativan po given as ordered.
[2023-11-08] MEDS: LOVENOX 40 MG SC (17:43)
[2023-11-08] MEDS: LIPITOR 80 MG PO (17:43)
--- NOTE | 2023-11-08 20:00 | PTCARENOTE ---
Assumed care of patient. Aox4. NSR. VSS on 3L. Tremors noted. Left eye ecchymotic but resolving. Assessment per nursing flowsheet
[2023-11-08] MEDS: THIAMINE INJECTION 200 MG IV (21:21)
[2023-11-08] MEDS: SEROQUEL 200 MG PO (21:22)
[2023-11-08] MEDS: ATARAX PO ×2 (21:22→21:24)
[2023-11-09] VITALS (11 sets, daily range): BP systolic 102–141; BP diastolic 64–85; PULSE 87–108; BMI 23.5
--- NOTE | 2023-11-09 01:19 | PTCARENOTE ---
Assumed care. Patient awake oriented times three. Resolving bruise around left eye. Hands tremors, HR 92, NSR. MSAS 3. Last Ativan dose 2121, call faria in reach
[2023-11-09 04:40] LABS: Hematocrit 32.2 % (37.0-47.0); Hemoglobin 10.8 g/dL (12.0-16.0); Mean Corp Hgb Conc. 33.5 g/dL (33.0-37.0); Mean Corpuscular Hgb 31.7 pg (27.0-31.0); Mean Corpuscular Volume 94.4 fL (81.0-99.0); Mean Platelet Volume 9.2 fL (7.4-10.4); Platelet Count 190 10^3/uL (130-400); Red Blood Cell Count 3.41 10^6/uL (4.20-5.40); Red Cell Dist. Width 13.9 % (11.5-14.5); White Blood Cell Count 4.9 10^3/uL (4.8-10.8)
[2023-11-09 05:07] LABS: ALT (SGPT) 23 U/L (0-35); AST (SGOT) 33 U/L (14-36); Alkaline Phosphatase 88 U/L (38-126); Blood Urea Nitrogen 11 mg/dl (7-17); Calcium 8.8 mg/dl (8.4-10.2); Carbon Dioxide 24 mmol/L (22-30); Chloride 107 mmol/L (98-107); Estimated Creatinine Clearance 85 ml/min; Glucose 99 mg/dl (70-99); Magnesium 1.4 mg/dl (1.6-2.3); Phosphorus 4.7 mg/dl (2.5-4.5); Potassium 3.3 mmol/L (3.5-5.1); Sodium 135 mmol/L (135-145); Total Bilirubin 0.6 mg/dl (0.2-1.3); Total Protein 5.3 g/dl (6.3-8.2); eGFR > 60.00
[2023-11-09] MEDS: ATIVAN 1 MG PO ×4 (06:19→20:55)
[2023-11-09] MEDS: MAGNESIUM SULFATE 102 GRAMS IV (06:19)
[2023-11-09] MEDS: KCL 40 MEQ PO (06:19)
--- NOTE | 2023-11-09 06:27 | PTCARENOTE ---
K 3.3, 40 mEq potassium given. Mg 1.4, magnesium IV infusing
--- NOTE | 2023-11-09 06:55 | W.PN.HOSP.TC ---
Today's Communication/Plan
-
Replete Potassium Mg
cont msas protocol
monitor orthostatic vitals
stable for downgrade to Tele
Assessment / Plan
Assessment / Plan
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
lying to sitting, or sitting to standing.
#Recurrent syncope
#Postural orthostasis/hypotension
daily orthostatic vital signs (so far neg), continue midodrine 5 mg 3 times daily (home dose)
Head and C-spine CT negative for acute fracture or dislocation, negative for bleed
monitor for syncope recurrence
PT rec HH
#Chronic alcohol use with dependency
#tremors possibly d/t withdrawal vs essential tremor vs albuterol prn side effect
Continue thiamine, folic acid, MSAS protocol, continues to require prn ativan daily
#Hypokalemia
#Hypomagnesemia
Monitor and Replete as necessary
#Chronic respiratory failure on 3L of oxygen at home
From chemical lung injury, denies history of COPD
Chest CT: Severe emphysematous lung changes. Linear parenchymal scarring in the posterior right upper lobe. No evidence of pneumonia.
#History of CVA
Continue statin, continue aspirin
#History of asthma
Continue home inhalers
considering switch from prn albuterol d/t tremors
#Anxiety/depression
Continue fluoxetine, hydroxyzine, Seroquel
DVT prophylaxis�subcu Lovenox
Full code
Medically stable for downgrade to Tele.
Total time spent to see the patient on the floor, examine the patient, review data and lab results, discuss treatment plan with patient, nursing staff around 51 minutes.
Physical Exam
General: No acute distress
HEENT: Normocephalic, left-sided periorbital ecchymosis noted, EOMI, MMM
Respiratory: Clear to Auscultation bilaterally
Cardiac: Normal S1/S2, Regular Rate and Rhythm
GI: Soft, Nontender, Nondistended, Normal Bowel Sounds
Extremities: No Clubbing, Cyanosis, or Edema
Neuro: Nonfocal/Grossly Intact, resting tremors upper ext's b/l
Psych: Calm, Cooperative
Anticipated Discharge: Within 24 hours
Subjective/Interval History
-
Date of Service: November 09, 2023
No acute distress appears comfortable at this time though reports some dizziness lightheadedness general malaise. patient also reports tremors relieved with ativan and chronic numbness lower ext's b/l present for years, strength remains intact.
Objective Data
-
Labs:
Laboratory Results
11/09/23
04:26
WBC 4.9
Hgb 10.8 L
Hct 32.2 L
Plt Count 190 D
Sodium 135
Potassium 3.3 L
Chloride 107
Carbon Dioxide 24
BUN 11
Creatinine 0.7
Glucose 99
Calcium 8.8
Total Bilirubin 0.6
AST 33
ALT 23
Alkaline Phosphatase 88
Vital Signs:
Vital Signs
Temp Pulse Resp BP Pulse Ox
98.2 F 80 16 102/64 97
11/09/23 04:09 11/09/23 05:00 11/09/23 04:09 11/09/23 04:10 11/09/23 04:09
I&O
11/07/23 11/08/23 11/09/23
06:59 06:59 06:59
Intake Total 650 / 650 340 / 340
Balance 650 / 650 340 / 340
[2023-11-09] MEDS: SYMBICORT 160/4.5 MCG INHALER 2 PUFF INH ×2 (07:18→20:30)
[2023-11-09] MEDS: ProAIR HFA INHALER 2 PUFF INH ×2 (07:19→15:25)
[2023-11-09] MEDS: SPIRIVA RESPIMAT 2.5 MCG 2 PUFF INH (07:19)
[2023-11-09] MEDS: ProAmatine 5 MG PO ×3 (08:11→17:26)
[2023-11-09] MEDS: LOW STRENGTH ASPIRIN 81 MG PO (08:11)
[2023-11-09] MEDS: FOLVITE 1 MG PO (08:11)
[2023-11-09] MEDS: NEURONTIN 400 MG PO ×3 (08:11→22:12)
[2023-11-09] MEDS: ATARAX 50 MG PO (08:13)
[2023-11-09] MEDS: THIAMINE INJECTION 200 MG IV ×2 (08:15→19:33)
[2023-11-09] MEDS: PROZAC 10 MG PO (08:15)
[2023-11-09] MEDS: FLUSH (NSS) 1 FLUSH IV (08:16)
--- NOTE | 2023-11-09 09:21 | PTCARENOTE ---
received patient from night RN, patient is very lethargic but able to open eyes when spoken too. monitor shows NSR/ST, VSS, MSAS score is a 3, please see documentation.
--- NOTE | 2023-11-09 12:22 | CM ---
Chart reviewed. Patient is independent of ADLS, lives with her long time boyfriend in a basement apartment with a total of 11 [address], ambulates with a SPC and a rolling walker. Patient has a mobile lab who comes out when needed to get blood work
that her PCP sets up, along with a nurse who see's her according to the patient every couple of months through medicare. PT evaluation recommending Home PT. Referral sent to [facility]. Plan is for the patient to return home with [facility]. CM to follow
--- NOTE | 2023-11-09 12:56 | PTCARENOTE ---
patient lying in bed with hand tremors, Ativan po given as ordered.
--- NOTE | 2023-11-09 17:00 | CM ---
Confirmed with the patient her PCP is Amy ZUNIGA with [facility]
[2023-11-09] MEDS: LOVENOX 40 MG SC (17:26)
[2023-11-09] MEDS: LIPITOR 80 MG PO (17:26)
--- NOTE | 2023-11-09 17:31 | PTCARENOTE ---
patient has tremors so bad that it is hard for her to eat her dinner, Ativan po given as ordered.
[2023-11-09] MEDS: ATARAX PO (19:33)
[2023-11-09] MEDS: SEROQUEL 200 MG PO (22:12)
[2023-11-10] VITALS (7 sets, daily range): BP systolic 107–133; BP diastolic 49–90; PULSE 98–99
[2023-11-10 03:28] LABS: Hematocrit 34.6 % (37.0-47.0); Mean Corp Hgb Conc. 31.8 g/dL (33.0-37.0); Mean Corpuscular Hgb 31.4 pg (27.0-31.0); Mean Corpuscular Volume 98.9 fL (81.0-99.0); Mean Platelet Volume 9.4 fL (7.4-10.4); Platelet Count 199 10^3/uL (130-400); White Blood Cell Count 5.1 10^3/uL (4.8-10.8)
[2023-11-10 04:01] LABS: ALT (SGPT) 22 U/L (0-35); AST (SGOT) 27 U/L (14-36); Alkaline Phosphatase 96 U/L (38-126); Blood Urea Nitrogen 13 mg/dl (7-17); Calcium 9.1 mg/dl (8.4-10.2); Carbon Dioxide 27 mmol/L (22-30); Chloride 104 mmol/L (98-107); Estimated Creatinine Clearance 99 ml/min; Glucose 102 mg/dl (70-99); Magnesium 1.6 mg/dl (1.6-2.3); Phosphorus 3.7 mg/dl (2.5-4.5); Potassium 3.5 mmol/L (3.5-5.1); Sodium 136 mmol/L (135-145); Total Bilirubin 0.5 mg/dl (0.2-1.3); Total Protein 5.2 g/dl (6.3-8.2); eGFR > 60.00
[2023-11-10] MEDS: ATIVAN 1 MG PO ×3 (04:39→14:20)
--- NOTE | 2023-11-10 06:21 | PTCARENOTE ---
No complaints of dizziness or syncopal episodes overnight. NSR on the monitor. Pt. scored mostly 5 on MSAS assessment due to marked hand tremors and tachycardia. Ativan PO administered, provided adequate relief.
[2023-11-10] MEDS: SPIRIVA RESPIMAT 2.5 MCG 2 PUFF INH (07:26)
[2023-11-10] MEDS: SYMBICORT 160/4.5 MCG INHALER 2 PUFF INH (07:26)
[2023-11-10] MEDS: ATARAX 50 MG PO (08:14)
[2023-11-10] MEDS: NEURONTIN 400 MG PO (08:14)
[2023-11-10] MEDS: VITAMIN B1 100 MG PO (08:14)
[2023-11-10] MEDS: FOLVITE 1 MG PO (08:14)
[2023-11-10] MEDS: LOW STRENGTH ASPIRIN 81 MG PO (08:14)
[2023-11-10] MEDS: ProAmatine 5 MG PO ×2 (08:17→13:57)
[2023-11-10] MEDS: PROZAC 10 MG PO (08:17)
--- NOTE | 2023-11-10 08:36 | W.PN.HOSP.TC ---
Today's Communication/Plan
-
discharge
Assessment / Plan
Assessment / Plan
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
lying to sitting, or sitting to standing.
#Recurrent syncope
#Postural orthostasis/hypotension
continue midodrine 5 mg 3 times daily (home dose)
Head and C-spine CT negative for acute fracture or dislocation, negative for bleed
negative for orthostatic hypotension during stay
no syncope noted during stay
PT rec HH
#Chronic alcohol use with dependency
#tremors possibly d/t withdrawal vs essential tremor vs albuterol prn side effect
Continue thiamine, folic acid, MSAS protocol, continues to require prn ativan daily, however suspect underlying essential tremors leading to falsely elevated MSAS scores
Permanent ETOH cessation advised
#Suspect Essential Tremors
present for years as per patient
possible complication history ETOH Abuse
#Hypokalemia
#Hypomagnesemia
Monitor and Replete as necessary
#Chronic respiratory failure on 3L of oxygen at home
From chemical lung injury, denies history of COPD
Chest CT: Severe emphysematous lung changes. Linear parenchymal scarring in the posterior right upper lobe. No evidence of pneumonia.
#History of CVA
Continue statin, continue aspirin
#History of asthma
Continue home inhalers
considering switch from prn albuterol d/t tremors
#Anxiety/depression
Continue fluoxetine, hydroxyzine, Seroquel
DVT prophylaxis�subcu Lovenox
Full code
PT appreciated home services
Medically stable for discharge home with home services and outpatient follow up recommendations.
Total Time Preparing Discharge ___50____ minutes including examination of the patient, summary of the hospital stay, instructions for continuing care to all relevant caregivers; and preparation of discharge records, prescriptions, and referral
forms if necessary.
Physical Exam
General: No acute distress
HEENT: Normocephalic, left-sided periorbital ecchymosis noted, EOMI, MMM
Respiratory: Clear to Auscultation bilaterally
Cardiac: Normal S1/S2, Regular Rate and Rhythm
GI: Soft, Nontender, Nondistended, Normal Bowel Sounds
Extremities: No Clubbing, Cyanosis, or Edema
Neuro: Nonfocal/Grossly Intact, resting tremors upper ext's b/l
Psych: Calm, Cooperative
Anticipated Discharge: Today
Subjective/Interval History
-
Date of Service: November 10, 2023
No acute distress. Continues to report tremors though this is noted chronic for years. Otherwise reports feeling well. Eager to go home
Objective Data
-
Labs:
Laboratory Results
11/10/23
03:11
WBC 5.1
Hgb 11.0 L
Hct 34.6 L
Plt Count 199
Sodium 136
Potassium 3.5
Chloride 104
Carbon Dioxide 27
BUN 13
Creatinine 0.6
Glucose 102 H
Calcium 9.1
Total Bilirubin 0.5
AST 27
ALT 22
Alkaline Phosphatase 96
Vital Signs:
Vital Signs
Temp Pulse Resp BP Pulse Ox
97.8 F 86 20 119/49 97
11/10/23 08:02 11/10/23 07:32 11/10/23 08:02 11/10/23 02:48 11/10/23 08:02
I&O
11/09/23 11/10/23 11/11/23
06:59 06:59 06:59
Intake Total 340 / 340
Balance 340 / 340
[2023-11-10] MEDS: MAGNESIUM SULFATE 50 IV (09:50)
[2023-11-10] MEDS: KCL 40 MEQ PO (09:50)
--- NOTE | 2023-11-10 12:23 | W.DCSUMMARY ---
Discharge Summary
Discharge Data
Date of Admission: 11/07/23
Date of Discharge: 11/10/23
-
Pending Results: No
Hospital Course
63-year-old female with a past medical history of chronic hypoxic respiratory failure on 2 L of oxygen secondary to chemical lung injury, asthma, CVA, back pain, neck pain, and alcohol dependency presents with recurrent syncope, when going from
lying to sitting, or sitting to standing. Recurrent syncope, Postural orthostasis/hypotension, home midodrine 5 mg 3 times daily was continued. Head and C-spine CT negative for acute fracture or dislocation, negative for bleed.
Negative for orthostatic hypotension during stay. No syncope noted during stay. PT evaluated and recommended Home Health. Chronic alcohol use with dependency,
tremors possibly d/t withdrawal vs essential tremor vs albuterol prn side effect. Continued thiamine, folic acid, supplementation. Monitored with MSAS protocol. Required prn ativan daily, however suspect underlying essential tremors leading to
falsely elevated MSAS scores. Permanent ETOH cessation was advised. Suspect Essential Tremors, present for years as per patient, possible complication history ETOH Abuse. Chronic respiratory failure on 3L of oxygen at home, from chemical lung
injury, denied history of COPD. Chest CT: Severe emphysematous lung changes. Linear parenchymal scarring in the posterior right upper lobe. No evidence of pneumonia. Medically stable, patient was discharged home with home services and outpatient
follow up recommendations.
Discharge Plan
-
Patient Disposition: Home (Routine Discharge)
Discharge Diagnosis/Procedures: Syncope unclear etiology since resolved, negative orthostatic hypotension, Chronic Alcohol Use with Dependency, Hypokalemia resolved, Hypomagnesemia resolved, Chronic respiratory failure, history stroke, history
asthma, anxiety/depression, neuropathy, suspected essential tremors
Condition: Fair
Diet: Low Cholesterol and 2 Gram Sodium
Activity: As tolerated
Driving Restrictions: Not until seen by your Dr
Bathing Restrictions: None
Blood Work: Please repeat CBC and BMP with primary care provider in 1 week of discharge.
Other Services: VN, PT and OT
Activity Restrictions/Additional Instructions:
Please follow up with primary care provider in 1 week and neurology, for essential tremor evaluation/treatment, in two weeks of discharge.
Permanent alcohol cessation is strongly advised.
Referrals:
[facility] [Outside]
Jay Bahena MD [Active] - in two weeks
Amy Banegas MD [Family Provider] - in one week
Prescriptions:
New
multivitamin Tablet
1 tab PO DAILY 30 Days Qty: 30 0RF
Continued
albuterol sulfate 90 mcg/actuation HFA aerosol inhaler
2 puff INHALATION R Q4 PRN (Reason: sob/wheezing)
Breztri Aerosphere 160-9-4.8 mcg/actuation HFA aerosol inhaler
2 inh INHALATION R BID
quetiapine 200 mg tablet
200 mg PO HS
hydroxyzine HCl 50 mg tablet
50 mg PO BID
gabapentin 300 mg capsule
400 mg PO TID
atorvastatin 80 mg Tablet
80 mg PO QPM Qty: 3 2RF
fluoxetine 10 mg Capsule
10 mg PO DAILY Qty: 30 2RF
aspirin [Children's Aspirin] 81 mg Tablet,Chewable
81 mg PO DAILY Qty: 30 0RF
midodrine 5 mg Tablet
5 mg PO TID
Discharge Orders:
Discharge Patient (As Directed); Ordered 11/10/23
Ordered By: Nicol Bauer
Care Plan Goals
Care Plan Goals:
Problem: Readiness for enhanced knowledge related to diagnosis and treatment plan
Goal: Understand your diagnosis and treatment plan needs, including medications if applicable.
Instructions: Know your diagnosis, underlying causes and treatment plan options, including medications if applicable. Consult with your health care team to learn about your diagnosis and treatment plan, including medications if applicable.
Discharge Date and Time
Discharge Date/Time: 11/10/23 15:05
Print Language: FAROESE
--- NOTE | 2023-11-10 15:05 | PTCARENOTE ---
Pt denies any lightheadedness or dizziness. OOB ad patrick in the room and to the bathroom. Remains on 02 at 3LNC as she is at home. Pt discharged to home with her significant other. Discharge instructions given and reviewed with good understanding.
== END 2023-11-10 15:05 | disposition home or self-care (01) | DRG 312 ==
LOC: IVU 06:28
PROVIDERS: Family Medicine; ADMITTING PHYSICIAN Internal Medicine; ATTENDING PHYSICIAN Internal Medicine; EMERGENCY PHYSICIAN Emergency Medicine; FAMILY PHYSICIAN Family Medicine
DX: I95.1 Orthostatic hypotension (principal); J96.10 Chronic respiratory failure, unspecified whether with hypoxia or hypercapnia; J44.0 Chronic obstructive pulmonary disease with (acute) lower respiratory infection; F11.20 Opioid dependence, uncomplicated; F41.9 Anxiety disorder, unspecified; M54.9 Dorsalgia, unspecified; M54.2 Cervicalgia; W01.190A Fall on same level from slipping, tripping and stumbling with subsequent striking against furniture, initial encounter; Y93.01 Activity, walking, marching and hiking; Y92.008 Other place in unspecified non-institutional (private) residence as the place of occurrence of the external cause; F32.A Depression, unspecified; G89.4 Chronic pain syndrome; F10.20 Alcohol dependence, uncomplicated; E78.00 Pure hypercholesterolemia, unspecified; M47.812 Spondylosis without myelopathy or radiculopathy, cervical region; E87.6 Hypokalemia; E83.42 Hypomagnesemia; G25.0 Essential tremor; I25.2 Old myocardial infarction; Z91.51 Personal history of suicidal behavior; Z87.01 Personal history of pneumonia (recurrent); Z87.891 Personal history of nicotine dependence; Z99.81 Dependence on supplemental oxygen; Z79.82 Long term (current) use of aspirin; Z86.73 Personal history of transient ischemic attack (TIA), and cerebral infarction without residual deficits; Z88.8 Allergy status to other drugs, medicaments and biological substances; Z91.048 Other nonmedicinal substance allergy status
CPT/HCPCS: 70450; 71275; 72125; 80053; 80306; 82077; 83690; 83735; 83880; 84100; 84484; 85025; 85027; 93005; 94640; 94760; 96360; 97162; 97166; 97530; 99285; Q9967

== ENCOUNTER 2024-06-14 22:14 | Emergency (ER) | payer MEDICARE, MEDICAID, SELFPAY ==
[2024-06-14 22:16] VITALS: BP 109/79
[2024-06-14 22:28] VITALS: BP 117/85
[2024-06-14 22:39] LABS: % Basophils 0.9 % (0-2); % Eosinophils 3.2 % (0-6); % Immature Granulocytes 0.3 % (0-0.5); % Lymphocytes 29.2 % (20.5-51.1); % Neutrophils 59.4 % (42.2-75.2); Absolute Basophils 0.1 10^3/uL (0-0.2); Absolute Eosinophils 0.3 10^3/uL (0-0.7); Absolute Lymphocytes 2.6 10^3/uL (1.2-3.4); Absolute Monocytes 0.6 10^3/uL (0.1-0.6); Absolute Neutrophils 5.2 10^3/uL (1.4-6.5); Hemoglobin 14.4 g/dL (12.0-16.0); Mean Corp Hgb Conc. 34.3 g/dL (33.0-37.0); Mean Corpuscular Hgb 33.2 pg (27.0-31.0); Mean Corpuscular Volume 96.8 fL (81.0-99.0); Mean Platelet Volume 9.7 fL (7.4-10.4); Nucleated Red Blood Cells % 0 %; Platelet Count 231 10^3/uL (130-400); Red Blood Cell Count 4.34 10^6/uL (4.20-5.40); Red Cell Dist. Width 12.5 % (11.5-14.5); White Blood Cell Count 8.8 10^3/uL (4.8-10.8)
[2024-06-14 22:56] LABS: Blood Urea Nitrogen 12 mg/dl (7-17); Calcium 9.3 mg/dl (8.4-10.2); Carbon Dioxide 26 mmol/L (22-30); Chloride 102 mmol/L (98-107); Estimated Creatinine Clearance 74 ml/min; Glucose 109 mg/dl (70-99); Sodium 143 mmol/L (135-145); eGFR > 60.00
[2024-06-14] MEDS: TORADOL 15 MG IV (23:26)
[2024-06-14 23:39] LABS: Urine Albumin Negative (Neg - Trace); Urine Bilirubin Negative (Negative); Urine Character Clear (Clear); Urine Color Yellow; Urine Glucose Negative (Negative); Urine Ketone Negative (Negative); Urine Leukocyte 1+ (Negative); Urine Nitrite Negative (Negative); Urine Occult Blood Negative (Negative); Urine Urobilinogen Negative (Neg - 1+); Urine pH 6.5 (5.0-9.0)
[2024-06-14] MEDS: DUONEB 3 ML INH (23:47)
--- NOTE | 2024-06-14 23:52 | ED.GENMED ---
History of Present Illness
<Jayashree Marquez PA-C - Last Filed: 06/15/24 03:21>
General
Chief Complaint: Back Pain
Source: patient and ambulance crew
Exam Limitations: none
Time Seen by Provider: 06/14/24 22:18
Nursing documentation reviewed up to this point in time: agreed with
History of Present Illness
History of Present Illness:
63 y/o F with h/o COPD chroinc hypoxic resp failure on 3L O2 chronically
h/o pna/empyema
chronic back pain, rsd
no longer on opiates
here with b/l mid back pain wrapping around her abdomen that started 5 days ago and is worse with movement
she does have chronic back pain
she admits to drinkin galcohol, had 2 shots tonight
denies recent falls, hematuria, urinary problems, nausea, vomtiing, diarrhea.
she also feels more SOB than usual, but also ran out of her albuterol nebs
pt has not had fever, cough, vomiting, dairrhea, cp, leg swelling
Past History
<Jayashree Marquez PA-C - Last Filed: 06/15/24 03:21>
Past History
ED Past Medical History: Asthma, COPD, Hypercholesterolemia, HI, Psychiatric (Depression, suicide attempts in the past, self-inflicted lacerations, Bipolar) and Other (chronic pain syndrome, narcotic dependant, cervical djd with chronic pain,
RSD,PNA, Nasal 02 all the time, Alcohol abuse, Compression Fractures)
ED Past Surgical History: Gynecological (brast surgery-lumpectomy (benign)) and Orthopedic (cervical lami with fusionmm, vertebroplasty, Right humerous repair)
Social History
Tobacco: Former smoker
Alcohol: Daily (history of alcohol abuse)
Drug: Marijuana
Personal: Single (Has Boyfriend)
Living: with family (Common law marrage)
Employment: Not employed
Family History
Family History: Other ([place]'s disease)
Review of Systems
<Jayashree Marquez PA-C - Last Filed: 06/15/24 03:21>
Review of Systems
Allergies reviewed?: Yes
All Other Systems: Not applicable
Phy Exam
<Jayashree Marquez PA-C - Last Filed: 06/15/24 03:21>
Physical Exam
Physical Exam:
GENERAL: Alert , in no apparent distress, smells of alcohol
HEAD: NCAT
CARDIAC: Regular rate and rhythm, no edema
LUNGS: fine crackles bases b/l, occ cough, no wheezing, no resp distress
ABDOMEN: Soft, without focal tenderness, no r/g, no cvat
NEUROLOGICAL: Alert and oriented, no focal neuro deficits, CN intact, 5/5 strength, sensation intact
SKIN: Warm and dry,
back: no midline tenderness
pain with movement o lisa back
no rib tenderness
MUSCULOSKELETAL: No edema, well perfused.
PSYCH: Normal and appropriate interaction.
Course
<Jayashree Marquez PA-C - Last Filed: 06/15/24 03:21>
Orders/Labs/Results
Orders:
Orders
06/14/24 22:29
Basic Metabolic Panel Urgent
Complete Blood Count/With Diff Urgent
06/14/24 23:15
Ketorolac [Toradol] 15 mg IV NOW STA
06/14/24 23:17
Electrocardiogram (*1) Urgent
Reason for Study: Shortness of Breath
EKG- Treatment ONCE
06/14/24 23:20
CR Chest - 2 Views Urgent
Comment:
Reason For Exam: SOB, BACK PAIN
06/14/24 23:22
Alcohol Urgent
Comprehensive Metabolic Panel Urgent
Urine Microscopic Reflex Cult Urgent
Urine Reflex Culture from UA [Urinalysis Reflex To Culture] Urgent
Date Specimen was Collected: 06/14/24
Time Specimen was Collected: 23:14
Urine Culture Urgent
SAM Source: U
Specimen Description:
Date Specimen was Collected: 06/14/24
Time Specimen was Collected: 23:14
06/14/24 23:45
Ipratropium/Albuterol Sulfate [Duoneb] 3 ml INH R NOW ONE
06/15/24 00:16
CT Abd/pel Without Iv Or Oral Urgent
Comment:
Reason For Exam: b/l back /flank pain
Abnormal Lab Results
06/14/24 06/14/24
22:29 23:22
MCH 33.2 H pg
(27.0-31.0)
Glucose 109 H mg/dl 105 H mg/dl
(70-99) (70-99)
Leukocyte Esterase Rfl 1+ A
(Negative)
Urine WBC (Reflex) 11-15 A /HPF
(0-5)
Urine Bacteria (Reflex) Moderate A
(Negative)
06/14/24 22:29
06/14/24 23:22
Vital Signs
Initial and Last Documented VS:
Initial Vital Signs
Temp Pulse Resp BP Pulse Ox
98.4 F 96 20 109/79 86
06/14/24 22:16 06/14/24 22:16 06/14/24 22:16 06/14/24 22:16 06/14/24 22:16
Last Documented Vital Signs
Temp Pulse Resp BP Pulse Ox
98.4 F 92 18 125/75 96
06/14/24 22:16 06/15/24 01:15 06/15/24 02:00 06/15/24 00:05 06/15/24 02:00
<Jovi Luu, - Last Filed: 06/15/24 01:59>
Orders/Labs/Results
Orders:
Orders
06/14/24 22:29
Basic Metabolic Panel Urgent
Complete Blood Count/With Diff Urgent
06/14/24 23:15
Ketorolac [Toradol] 15 mg IV NOW STA
06/14/24 23:17
Electrocardiogram (*1) Urgent
Reason for Study: Shortness of Breath
EKG- Treatment ONCE
06/14/24 23:20
CR Chest - 2 Views Urgent
Comment:
Reason For Exam: SOB, BACK PAIN
06/14/24 23:22
Alcohol Urgent
Comprehensive Metabolic Panel Urgent
Urine Microscopic Reflex Cult Urgent
Urine Reflex Culture from UA [Urinalysis Reflex To Culture] Urgent
Date Specimen was Collected: 06/14/24
Time Specimen was Collected: 23:14
Urine Culture Urgent
SAM Source: U
Specimen Description:
Date Specimen was Collected: 06/14/24
Time Specimen was Collected: 23:14
06/14/24 23:45
Ipratropium/Albuterol Sulfate [Duoneb] 3 ml INH R NOW ONE
06/15/24 00:16
CT Abd/pel Without Iv Or Oral Urgent
Comment:
Reason For Exam: b/l back /flank pain
Abnormal Lab Results
06/14/24 06/14/24
22:29 23:22
MCH 33.2 H pg
(27.0-31.0)
Glucose 109 H mg/dl 105 H mg/dl
(70-99) (70-99)
Leukocyte Esterase Rfl 1+ A
(Negative)
Urine WBC (Reflex) 11-15 A /HPF
(0-5)
Urine Bacteria (Reflex) Moderate A
(Negative)
06/14/24 22:29
06/14/24 23:22
Vital Signs
Initial and Last Documented VS:
Initial Vital Signs
Temp Pulse Resp BP Pulse Ox
98.4 F 96 20 109/79 86
06/14/24 22:16 06/14/24 22:16 06/14/24 22:16 06/14/24 22:16 06/14/24 22:16
Last Documented Vital Signs
Temp Pulse Resp BP Pulse Ox
98.4 F 92 18 125/75 96
06/14/24 22:16 06/15/24 01:15 06/15/24 02:00 06/15/24 00:05 06/15/24 02:00
<Jayashree Marquez PA-C - Last Filed: 06/15/24 03:21>
MDM/Problems Addressed
Differential Diagnosis Includes:
pneumonia, COPD, msk back pain, kidney stone, AAA,
MDM/Problems Addressed:
63 y/o F
chronic COPD on o2
chorni pain formerly on opiates
back pain x 5 days, no trauma b/l thoracic aroudn to her abdomen/sides
worse with movement
also feels a little sob
has h/o empyema in the past
no feve/rchills/cough/vomiting/diarrhea
noting taken for pain
also ran otu of her inhalers
pt is not requiring more o2 than normal
not anticoagulated, previous h/o hem CVA
lungs sound mildly crackly bases like intersitital lung disease
xray appears ne gindep reviewed, unchanged from past, hyperaeration, no [employer]
abdomen nontender
normal wbc
urine had some LE, bacteria but appears contaminated
no urinary symptoms
will send culture, unlikely cause fo the back pain
seen by ed attending
ct scan to r/o obstructive uropathy'/AAA, neg
chronic compression fx t12,
pt asking for pain medication but she is intoxicated with alc of 244
will offer tylenol, suspect pt has msk back pain
unlikely PE
d/c home
<Jayashree Marquez PA-C - Last Filed: 06/15/24 03:21>
*Critical Care Note
Total Time (30-74mins, 75-104mins- exclusive of procedures): Not Applicable
ED Attending Note
<Jayashree Marquez PA-C - Last Filed: 06/15/24 03:21>
-
Portions of this chart may have been created with voice recognition software.� Occasional wrong word or��sound alike� substitutions may have occurred due to the inherent limitations of voice recognition software.
<Jovi Luu DO - Last Filed: 06/15/24 01:59>
ED Attending Note
Patient seen and examined by attending physician: Yes
I performed the substantive portion of visit, reviewed & personally made and approve the management plan that is documented in note by myself or ALIZA.: Yes
Discharge Plan
Departure
Patient Disposition: Home (Routine Discharge)
Date of Disposition: 06/15/24
Time of Disposition: 01:31
Patient with high blood pressure during this ER visit?: No
Condition: Fair
Covid-19: Not Applicable
Discharge Problem:
Chronic back pain, COPD (chronic obstructive pulmonary disease), Alcohol dependence
Instructions: Chronic Obstructive Pulmonary Disease (COPD) (DC), Upper Back Pain (DC)
Prescriptions:
No Action
albuterol sulfate 90 mcg/actuation HFA aerosol inhaler
2 puff INHALATION R Q4 PRN (Reason: sob/wheezing)
Breztri Aerosphere 160-9-4.8 mcg/actuation HFA aerosol inhaler
2 inh INHALATION R BID
quetiapine 200 mg tablet
200 mg PO HS
hydroxyzine HCl 50 mg tablet
50 mg PO BID
gabapentin 300 mg capsule
400 mg PO TID
atorvastatin 80 mg Tablet
80 mg PO QPM Qty: 3 2RF
fluoxetine 10 mg Capsule
10 mg PO DAILY Qty: 30 2RF
aspirin [Children's Aspirin] 81 mg Tablet,Chewable
81 mg PO DAILY Qty: 30 0RF
midodrine 5 mg Tablet
5 mg PO TID
multivitamin Tablet
1 tab PO DAILY 30 Days Qty: 30 0RF
Referrals:
UNKNOWN,NO INTERVIEW [Family Provider] -
Interventions
Interventions:
*Risk Screen - Suicide Last Done: 06/14/24 22:16
*General Assessment Last Done: 06/14/24 22:16
*Neglect/Abuse Screening Last Done: 06/14/24 22:16
ED- Fall Risk Assessment Last Done: 06/14/24 22:26
*ED COVID-19 Vaccine History Last Done: 06/14/24 22:23
ED-Musculoskeletal Assessment Last Done: 06/15/24 00:24
Discharge Date and Time
Print Language: [place]AST [place]
[2024-06-15 00:05] VITALS: BP 125/75
[2024-06-15 00:11] LABS: ALT (SGPT) 25 U/L (0-35); AST (SGOT) 36 U/L (14-36); Albumin 3.9 g/dl (3.5-5.0); Alcohol 244 mg/dl; Alkaline Phosphatase 112 U/L (38-126); Blood Urea Nitrogen 12 mg/dl (7-17); Carbon Dioxide 26 mmol/L (22-30); Chloride 103 mmol/L (98-107); Estimated Creatinine Clearance 74 ml/min; Glucose 105 mg/dl (70-99); Potassium 3.5 mmol/L (3.5-5.1); Sodium 143 mmol/L (135-145); Total Bilirubin 0.4 mg/dl (0.2-1.3); Total Protein 6.4 g/dl (6.3-8.2); eGFR > 60.00
[2024-06-15 00:25] LABS: Urine Red Blood Cell 0-2 /HPF (0-2)
[2024-06-15 00:26] LABS: Urine Bacteria Moderate (Negative)
[2024-06-15 03:27] VITALS: BP 118/78
== END 2024-06-15 03:29 | disposition home or self-care (01) ==
LOC: EMR 22:14
PROVIDERS: Physician Assistant; EMERGENCY PHYSICIAN Emergency Medicine
DX: G89.4 Chronic pain syndrome (principal); M54.9 Dorsalgia, unspecified; J43.9 Emphysema, unspecified; F10.20 Alcohol dependence, uncomplicated; E78.00 Pure hypercholesterolemia, unspecified; Z87.01 Personal history of pneumonia (recurrent); Z87.891 Personal history of nicotine dependence; Z91.51 Personal history of suicidal behavior; Z99.81 Dependence on supplemental oxygen
CPT/HCPCS: 99284; 94640; 96374; 71046; 74176; 80048; 80053; 81003; 81015; 82077; 85025; 87086; 93005